=== PATIENT | female | born 1990 | race American Indian/Alaskan Native ===

== ENCOUNTER 2019-06-19 15:05 | Inpatient (IN) | payer OTHER ==
--- NOTE | 2019-06-19 16:01 | Event Note ---
ED Screening Note Date of service: 06/19/19 Time: 16:00 ED Screening Note: This is a 29 y.o. F. that presents with abdominal pain and fever for 2 days. Taking NSAIDs with minimal change. LMP 05/11/19 This initial assessment/diagnostic orders/clinical plan/treatment(s) is/are subject to change based on patients health status, clinical progression and re- assessment by fellow clinical providers in the ED. Further treatment and workup at subsequent clinical providers discretion. Patient/guardian urged not to elope from the ED as their condition may be serious if not clinically assessed and managed. Initial orders include: Labs, CXR, EKG, & CT of abd
[2019-06-19 16:24] LABS: Basophils % (Auto) 0.3 % (0.0-1.8); Hemoglobin 11.6 gm/dl (10.1-14.3); Lymphocytes # (Auto) 1.7 K/mm3 (1.2-5.4); Lymphocytes % (Auto) 10.4 % (13.4-35.0); Mean Corpuscular HGB Conc 34 % (30-34); Mean Corpuscular Volume 89 fl (79-97); Monocytes # (Auto) 1.4 K/mm3 (0.0-0.8); Monocytes % (Auto) 8.5 % (0.0-7.3); Platelet Count 380 K/mm3 (140-440); Red Blood Count 3.82 M/mm3 (3.65-5.03); Red Cell Distribution Width 14.9 % (13.2-15.2)
[2019-06-19 16:33] LABS: INR 1.27 (0.87-1.13)
[2019-06-19 16:46] LABS: Alanine Aminotransferase 9 units/L (7-56); Albumin 3.9 g/dL (3.9-5); BUN/Creatinine Ratio 11; Blood Urea Nitrogen 10 mg/dL (7-17); Calcium 9.1 mg/dL (8.4-10.2); Hemolysis Index 4
--- NOTE | 2019-06-19 17:15 | XRay Report ---
CHEST 1 VIEW INDICATION: possible Sepsis/ HCG ORDERED 1604 AYT COMPARISON: None FINDINGS: Support devices: None Heart: Normal Lungs/Pleura: No acute pulmonary or pleural findings. IMPRESSION: 1. No acute abnormalities. Signer Name: Tacos Chan MD Signed: 06/19/2019 5:10 PM Workstation Name: [id number]
[2019-06-19 18:34] LABS: Bilirubin,Urine NEG (Negative); Blood,Urine SM (Negative); Color,Urine Yellow (Yellow); Mucus,Urine FEW /HPF; Protein,Urine <15 mg/dL mg/dL (Negative); Urobilinogen,Urine < 2.0 mg/dL (<2.0)
[2019-06-19] MEDS ORDERED: SODIUM CHLORIDE 0.9% 1000 ML 1,000 ML IV ONE (20:30)
--- NOTE | 2019-06-19 20:32 | Emergency Department Report ---
ED Abdominal Pain HPI - General Chief Complaint: Fever Stated Complaint: FEVER/ABD PAIN Time Seen by Provider: 06/19/19 15:59 Source: patient Mode of arrival: Ambulatory Limitations: No Limitations - History of Present Illness Initial Comments: Patient is a 29-year-old female that presents emergency with complaints of lower abdominal pain and fever. Patient states her syncopal been going on for 2 days. Patient states that her abdominal pain is worsening. Patient states 10 out of 10. Patient states the pain is worse with movement and better with rest. Patient also complains of nausea without vomiting. Patient states her fever is better with ibuprofen. Patient denies vaginal discharge. Patient denies dysuria. Patient denies cough. Patient denies sore throat MD Complaint: abdominal pain -: Sudden Location: LLQ, RLQ, suprapubic Radiation: none Migration to: no migration Severity: severe Severity scale (0 -10): 10 Quality: stabbing Consistency: constant Improves With: rest Worsens With: movement Associated Symptoms: nausea, fever, chills. denies: vomiting, diarrhea, constipation, dysuria, hematemesis, hematochezia, melena, hematuria, syncope - Related Data LMP (females 10-50): last week Home Medications Medication Instructions Recorded Confirmed Last Taken No Known Home Medications [No 06/20/19 06/20/19 Unknown Reported Home Medications] Allergies Allergy/AdvReac Type Severity Reaction Status Date / Time metronidazole [From Flagyl] Allergy Hives Verified 06/19/19 15:56 tree nut Allergy Angioedema Verified 06/19/19 15:56 ED Review of Systems ROS: Stated complaint: FEVER/ABD PAIN Other details as noted in HPI Constitutional: chills, fever Eyes: denies: eye pain, eye discharge, vision change ENT: denies: ear pain, throat pain Respiratory: denies: cough, shortness of breath, wheezing Cardiovascular: denies: chest pain, palpitations Endocrine: no symptoms reported Gastrointestinal: abdominal pain, nausea. denies: vomiting, diarrhea Genitourinary: denies: urgency, dysuria, discharge Musculoskeletal: denies: back pain, joint swelling, arthralgia Skin: denies: rash, lesions Neurological: denies: headache, weakness, paresthesias Psychiatric: denies: anxiety, depression Hematological/Lymphatic: denies: easy bleeding, easy bruising ED Past Medical Hx - Past Medical History Previous Medical History?: Yes Hx Psychiatric Treatment: Yes Additional medical history: VERTIGO - Surgical History Past Surgical History?: No - Family History Family history: no significant - Social History Smoking Status: Current Some Day Smoker Substance Use Type: None - Medications Home Medications: Home Medications Medication Instructions Recorded Confirmed Last Taken Type No Known Home Medications [No 06/20/19 06/20/19 Unknown History Reported Home Medications] ED Physical Exam - General Limitations: No Limitations General appearance: alert, in no apparent distress - Head Head exam: Present: atraumatic, normocephalic - Eye Eye exam: Present: normal appearance - ENT ENT exam: Present: mucous membranes moist - Neck Neck exam: Present: normal inspection - Respiratory Respiratory exam: Present: normal lung sounds bilaterally. Absent: respiratory distress - Cardiovascular Cardiovascular Exam: Present: regular rate, normal rhythm. Absent: systolic murmur, diastolic murmur, rubs, gallop - GI/Abdominal GI/Abdominal exam: Present: soft, tenderness (bilateral lower quadrant tenderness to palpation.), normal bowel sounds - Rectal Rectal exam: Present: deferred - External exam: Present: normal external exam Speculum exam: Present: vaginal discharge, cervical discharge Bi-manual exam: Present: cervical motion tendernes - Extremities Exam Extremities exam: Present: normal inspection - Back Exam Back exam: Present: normal inspection - Neurological Exam Neurological exam: Present: alert, oriented X3 - Psychiatric Psychiatric exam: Present: normal affect, normal mood - Skin Skin exam: Present: warm, dry, intact, normal color. Absent: rash ED Course Vital Signs 06/19/19 06/19/19 06/19/19 15:58 16:00 20:33 Temperature 101 F H 101.2 F H 99.5 F Pulse Rate 140 H 140 H 130 H Respiratory 16 18 28 H Rate Blood Pressure 126/76 Blood Pressure 126/79 118/75 [Left] O2 Sat by Pulse 97 98 98 Oximetry 06/19/19 06/19/19 06/20/19 21:18 21:35 01:05 Temperature Pulse Rate 123 H 126 H Respiratory 16 28 H 19 Rate Blood Pressure 114/67 114/70 Blood Pressure [Left] O2 Sat by Pulse 98 94 Oximetry 06/20/19 06/20/19 06/20/19 01:06 01:30 01:31 Temperature 100.8 F H Pulse Rate 118 H Respiratory 16 16 20 Rate Blood Pressure Blood Pressure 114/71 [Left] O2 Sat by Pulse 97 Oximetry 06/20/19 06/20/19 01:48 01:50 Temperature Pulse Rate Respiratory 16 16 Rate Blood Pressure Blood Pressure [Left] O2 Sat by Pulse Oximetry - Reevaluation(s) Reevaluation #1: I discussed all results with patient. Discussed plan of care patient. Patient agrees to have pelvic exam done. Patient will be admitted to the [facility] service. Patient agrees with plan of care. 06/20/19 00:36 Reevaluation #2: kavya in room during entire pelvic exam. Pelvic exam done. 06/20/19 00:46 - Consultations Consultation #1: I discussed case with Dr. Machado, ETL SOFTWARE ENGINEER. Dr. Machado agrees to admit the patient for PID. 06/20/19 00:15 ED Medical Decision Making - Lab Data Result diagrams: 06/19/19 16:08 06/19/19 16:08 Short CBC 06/19/19 Range/Units 16:08 WBC 16.6 H (4.5-11.0) K/mm3 Hgb 11.6 (10.1-14.3) gm/dl Hct 34.0 (30.3-42.9) % Plt Count 380 (140-440) K/mm3 BMP 06/19/19 16:08 Sodium 131 L Potassium 3.5 L Chloride 97.3 L Carbon Dioxide 18 L BUN 10 Creatinine 0.9 Glucose 150 H Calcium 9.1 Liver Function 06/19/19 Range/Units 16:08 Total Bilirubin 0.60 (0.1-1.2) mg/dL AST 15 (5-40) units/L ALT 9 (7-56) units/L Alkaline Phosphatase 49 (35-129) units/L Albumin 3.9 (3.9-5) g/dL Urine 06/19/19 Range/Units 18:00 Urine Color Yellow (Yellow) Urine pH 6.0 (5.0-7.0) Ur Specific [place] 1.008 (1.003-1.030) Urine Protein <15 mg/dl (Negative) mg/dL Urine Glucose (UA) Neg (Negative) mg/dL - Radiology Data Radiology results: report reviewed Ultrasound, pelvic (nonobstetric), real-time with image documentation;transvaginal imaging with Doppler was performed. FINDINGS: The uterus is of normal size and echogenicity. 3.0 cm uterine fibroids present on the right.. Endometrial thickness is 1.07 cm The right ovary demonstrates a hypoechoic mass-hemorrhagic cyst measuring 10 cm. A 3.0 cm cyst is present on the left with internal septations. Doppler imaging demonstrates normal vascular flow to both ovaries. There is no significant quantity of free fluid dependently within the pelvis. IMPRESSION: 1. Large right hypoechoic right ovarian lesion without significant septations, large hemorrhagic cyst is a concern 2. Small 3 cm left ovarian cyst with septations, recommend continued follow-up cyst adenoma versus cyst adenocarcinoma should be considered Comments MR is recommended for further evaluation CT abdomen pelvis w con INDICATION / CLINICAL INFORMATION: lower abdominal pain. TECHNIQUE: All CT scans at this location are performed using CT dose reduction for ALARA by means of automated exposure control. COMPARISON: None available. FINDINGS: The lower lungs are clear. ABDOMEN: The gallbladder, liver, spleen, pancreas and adrenal glands are normal. No renal lesions. No evidence of the hydronephrosis. No retroperitoneal or mesenteric adenopathy. Pelvis: Multi cystic mass in the pelvis causing anterior and left lateral displacement of the uterus. The mass, overall measures approximately 13 cm x 10 cm. Small amount of pelvic ascites is identified. The appendix is normal. No pelvic adenopathy. No osseous abnormality. IMPRESSION: 1. Large multicystic pelvic mass presumably arising from ovary but nonspecific in appearance. CHEST 1 VIEW INDICATION: possible Sepsis/ HCG ORDERED 1604 AYT COMPARISON: None FINDINGS: Support devices: None Heart: Normal Lungs/Pleura: No acute pulmonary or pleural findings. IMPRESSION: 1. No acute abnormalities - Medical Decision Making Patient is a 29-year-old female that presents emergency room with complaints of lower abdominal pain and fever. Patient's clinical findings are consistent with PID. Patient given antibiotics. Patient admitted to mother baby to the [facility] OPER[facility] service. Patient had CT scan which shows a pelvic mass. Patient then had a follow-up ultrasound, transvaginal and the results showed hydrosalpinx and ovarian cyst. FINDINGS ARE CONSISTENT WITH PID. PATIENT THEN HAD A PELVIC EXAM WITH A NURSE ACCURACY EXPERT AND THROAT EXAM REVEALED CERVICAL motion tenderness and copious amounts of vaginal discharge. Gonorrhea and chlamydia and wet prep were sent to the lab for analysis. Patient given fluid bolus and Dilaudid for pain. Patient given Rocephin and Doxey for antibiotics for PID. - Differential Diagnosis PID, abdominal pain, fever, ovarian torsion, appendicitis Critical Care Time: Yes Critical care time in (mins) excluding proc time.: 45 Critical care attestation.: If time is entered above; I have spent that time in minutes in the direct care of this critically ill patient, excluding procedure time. Critical Care Time: 45 minutes ED Disposition Clinical Impression: PID (acute pelvic inflammatory disease), Pelvic mass, Nausea alone Fever Qualifiers: Fever type: unspecified Qualified Code(s): R50.9 - Fever, unspecified Abdominal pain Qualifiers: Abdominal location: lower abdomen, unspecified Qualified Code(s): R10.30 - Lower abdominal pain, unspecified Ovarian cyst Qualifiers: Laterality: unspecified laterality Qualified Code(s): N83.209 - Unspecified ovarian cyst, unspecified side Disposition: OP ADMIT IP TO THIS HOSP Is pt being admited?: Yes Does the pt Need Aspirin: No Condition: Critical Time of Disposition: 00:50
[2019-06-19] MEDS: SODIUM CHLORIDE 0.9% 500 ML 500 ML IV ONE ×2 (20:42→22:42)
[2019-06-19] MEDS ORDERED: HYDROmorphone 1 MG/1 ML INJ IV ONE (20:45)
[2019-06-19] MEDS ORDERED: HYDROmorphone 1 MG/1 ML INJ ONE (20:48)
--- NOTE | 2019-06-19 21:56 | Cat Scan Report ---
CT abdomen pelvis w con INDICATION / CLINICAL INFORMATION: lower abdominal pain. TECHNIQUE: All CT scans at this location are performed using CT dose reduction for ALARA by means of automated e xposure control. COMPARISON: None available. FINDINGS: The lower lungs are clear. ABDOMEN: The gallbladder, liver, spleen, pancreas and adrenal glands are normal. No renal lesions. No evidence of the hydronephrosis. No retroperitoneal or mesenteric adenopathy. Pelvis: Multi cystic mass in the pelvis causing anterior and left lateral displacement of the uterus. The mas s, overall measures approximately 13 cm x 10 cm. Small amount of pelvic ascites is identified. The appendix is normal. No pelvic adenopathy. No osseous abnormality. IMPRESSION: 1. Large multicystic pelvic mass presumably arising from ovary but nonspecific in appearance. Signer Name: Sai Salgado MD Signed: 06/19/2019 9:51 PM Workstation Name: [id number]
--- NOTE | 2019-06-19 23:25 | Ultrasound Report ---
CLINICAL DATA: abd pain TECHNICAL DATA: Ultrasound, pelvic (nonobstetric), real-time with image documentation;transvaginal imaging with Doppl er was performed. FINDINGS: The uterus is of normal size and echogenicity. 3.0 cm uterine fibroids present on the right.. Endome trial thickness is 1.07 cm The right ovary demonstrates a hypoechoic mass-hemorrhagic cyst measuring 10 cm. A 3.0 cm cyst is pre sent on the left with internal septations. Doppler imaging demonstrates normal vascular flow to both ovaries. There is no significant quantity of free fluid dependently within the pelvis. IMPRESSION: 1. Large right hypoechoic right ovarian lesion without significant septations, large hemorrhagic cyst is a concern 2. Small 3 cm left ovarian cyst with septations, recommend continued follow-up cyst adenoma versus cy st adenocarcinoma should be considered Comments MR is recommended for further evaluation GUIDELINES FOR IMAGING OF OVARIAN--ADNEXAL CYST: WOMEN OF REPRODUCTIVE AGE: 1. Cysts <=3 cm: Normal physiologic findings; at the discretion of the interpreting physician whether or not to describe them in the imaging report; do not need follow-up. 2. Cysts >3 and <=5 cm: Should be described in the imaging report with a statement that they are almo st certainly benign; do not need follow-up. 3. Cysts >5 and <=7 cm: Should be described in the imaging report with a statement that they are almo st certainly benign; yearly follow-up with US recommended. 4. Cysts >7 cm: Since these may be difficult to assess completely with US, further imaging with magne tic resonance (MR) or surgical evaluation should be considered. POSTMENOPAUSAL WOMEN: 1. Cysts <=1 cm: Are clinically inconsequential; at the discretion of the interpreting physician whet her or not to describe them in the imaging report; do not need follow-up. 2. Cysts >1 and <=7 cm: Should be described in the imaging report with statement that they are almost certainly benign; yearly follow-up, at least initially, with US recommended. Some practices may opt to increase the lower size threshold for follow-up from 1 cm to as high as 3 cm. One may opt to yovani nue follow-up annually or to decrease the frequency of follow-up once stability or decrease in size h as been confirmed. Cysts in the larger end of this range should still generally be followed on a regu lar basis. 3. Cysts >7 cm: Since these may be difficult to assess completely with US, further imaging with MR or surgical evaluation should be considered. Signer Name: Emmanuel Diaz MD Signed: 06/19/2019 11:20 PM Workstation Name: [id number]
[2019-06-20] MEDS ORDERED: cefTRIAXone/NS 2 GM/100 ML 2 GM/100 ML BAG IV ONE (00:38)
[2019-06-20] MEDS ORDERED: SODIUM CHLORIDE 0.9% 1000 ML 1,000 ML IV ONE (00:38)
[2019-06-20] MEDS ORDERED: HYDROmorphone 1 MG/1 ML INJ ONE (00:41)
[2019-06-20] MEDS ORDERED: SODIUM CHLORIDE 0.9% 1000 ML 1,000 ML ONE (00:41)
[2019-06-20] MEDS ORDERED: DOXYCYCLINE HYCLATE 100 MG in SODIUM CHLORIDE 0.9% 250ML 250 ML IV ONE (00:53)
[2019-06-20] MEDS: HYDROmorphone 1 MG/1 ML INJ IV ONE ×2 (01:06→01:30)
[2019-06-20] MEDS ORDERED: IBUPROFEN 800 MG TAB PO ONE (01:30)
[2019-06-20] MEDS ORDERED: IBUPROFEN 800 MG TAB ONE (01:41)
[2019-06-20] MEDS: HYDROmorphone 2 MG/1 ML INJ IM PRN ×2 (08:00→14:42)
[2019-06-20] MEDS ORDERED: ONDANSETRON 4 MG/2 ML INJ IV ONE (12:57)
[2019-06-20] MEDS: LACTATED RINGERS 1,000 ML IV SCH (13:07)
--- NOTE | 2019-06-20 14:34 | History and Physical Report ---
History of Present Illness Date of examination: 06/20/19 Date of admission: 06/20/19 00:47 Chief complaint: I'm in pain History of present illness: Patient is a 29 year old G2 who presented to the Ed with complaint of pelvic pain since Saturday that go worse Saturday afternoon. Patient also reports a discharge with an odor. She denies any new sexual partners. She states that her last manager gyn exam was in August 2018. Past History Past Medical History: no pertinent history Past Surgical History: no surgical history Social history: other (patient denies any new partners) Medications and Allergies Allergies Allergy/AdvReac Type Severity Reaction Status Date / Time metronidazole [From Flagyl] Allergy Hives Verified 06/19/19 15:56 tree nut Allergy Angioedema Verified 06/19/19 15:56 Home Medications Medication Instructions Recorded Confirmed Last Taken Type No Known Home Medications [No 06/20/19 06/20/19 Unknown History Reported Home Medications] Active Meds: Active Medications Acetaminophen (Tylenol) 650 mg PO Q6H PRN PRN Reason: Pain, Mild (1-3) Hydromorphone HCl (Dilaudid) 2 mg IM Q3H PRN PRN Reason: Pain , Severe (7-10) Last Admin: 06/20/19 08:00 Dose: 2 mg Documented by: Lactated Ringer's (Lactated Ringers) 1,000 mls @ 125 mls/hr IV DIRECT ALEX Last Admin: 06/20/19 13:07 Dose: 125 mls/hr Documented by: Levofloxacin/Dextrose (Levaquin 500mg/100ml) 500 mg in 100 mls @ 100 mls/hr IV Q24HR ALEX; Protocol Zolpidem Tartrate (Ambien) 5 mg PO QHS PRN PRN Reason: Sleep Review of Systems Constitutional: fever, chills, weakness, malaise Genitourinary: vaginal discharge, leakage of fluid, pelvic pain - Vital Signs Vital signs: Vital Signs Temp Pulse Resp BP Pulse Ox 101 F H 140 H 16 126/79 97 06/19/19 15:58 06/19/19 15:58 06/19/19 15:58 06/19/19 15:58 06/19/19 15:58 Temp Pulse Resp BP Pulse Ox 98.2 F 94 H 20 113/64 97 06/20/19 09:40 06/20/19 09:40 06/20/19 09:40 06/20/19 09:40 06/20/19 03:32 - Physical Exam Breasts: Positive: deferred Cardiovascular: Regular rate, Normal S1, Normal S2 Lungs: Positive: Clear to auscultation, Normal air movement Abdomen: Positive: normal appearance, soft, normal bowel sounds Genitourinary (Female): Positive: normal external genitalia, normal perenium Vulva: both: normal Vagina: Positive: normal moisture Results Result Diagrams: 06/19/19 16:08 06/19/19 16:08 Abnormal lab results 06/19/19 06/19/19 06/19/19 Range/Units 16:08 16:08 16:08 WBC 16.6 H (4.5-11.0) K/mm3 Lymph % (Auto) 10.4 L (13.4-35.0) % [place] % (Auto) 8.5 H (0.0-7.3) % [place] # 1.4 H (0.0-0.8) K/mm3 Seg Neutrophils % 80.8 H (40.0-70.0) % Seg Neutrophils # 13.4 H (1.8-7.7) K/mm3 PT 16.1 H (12.2-14.9) Sec. INR 1.27 H (0.87-1.13) VBG pH (7.320-7.420) Sodium 131 L (137-145) mmol/L Potassium 3.5 L (3.6-5.0) mmol/L Chloride 97.3 L (98-107) mmol/L Carbon Dioxide 18 L (22-30) mmol/L Glucose 150 H (65-100) mg/dL Total Protein 8.3 H (6.3-8.2) g/dL 06/19/19 Range/Units 16:08 WBC (4.5-11.0) K/mm3 Lymph % (Auto) (13.4-35.0) % [place] % (Auto) (0.0-7.3) % [place] # (0.0-0.8) K/mm3 Seg Neutrophils % (40.0-70.0) % Seg Neutrophils # (1.8-7.7) K/mm3 PT (12.2-14.9) Sec. INR (0.87-1.13) VBG pH 7.482 H (7.320-7.420) Sodium (137-145) mmol/L Potassium (3.6-5.0) mmol/L Chloride (98-107) mmol/L Carbon Dioxide (22-30) mmol/L Glucose (65-100) mg/dL Total Protein (6.3-8.2) g/dL All other labs normal. Assessment and Plan 29 year old female with presumed PID and likely TOA. Will begin IV antibiotics to decrease symptoms. Once nausea and vomiting ceased, would change to oral antibiotics.
[2019-06-20] MEDS: ACETAMINOPHEN 325 MG TAB PO PRN (17:00)
[2019-06-20] MEDS: HYDROmorphone 2 MG TAB PO PRN (23:41)
[2019-06-21] MEDS: ACETAMINOPHEN 325 MG TAB PO PRN ×3 (00:34→23:10)
[2019-06-21] MEDS: ZOLPIDEM 5 MG TAB PO PRN (02:14)
[2019-06-21] MEDS: HYDROmorphone 2 MG TAB PO PRN ×3 (08:54→20:27)
[2019-06-21] MEDS: ONDANSETRON 8 MG ODT TAB PO PRN ×2 (08:56→16:52)
[2019-06-21] MEDS: LACTATED RINGERS 1,000 ML IV SCH (15:00)
[2019-06-22] MEDS: LACTATED RINGERS 1,000 ML IV SCH ×3 (00:44→17:16)
[2019-06-22] MEDS: HYDROmorphone 2 MG TAB PO PRN ×5 (00:49→23:53)
[2019-06-22] MEDS: ACETAMINOPHEN 325 MG TAB PO PRN (08:20)
--- NOTE | 2019-06-22 14:08 | XRay Report ---
CHEST 2 VIEWS INDICATION: elevated temperature. COMPARISON: 06/19/2019 FINDINGS: Support devices: None. Heart: Within normal limits. Pulmonary vasculature: Normal. Lungs/pleura: No acute air space or interstitial disease. No pneumothorax. Additional findings: None. IMPRESSION: 1. No acute findings. Signer Name: Braydon Kruger MD Signed: 06/22/2019 2:04 PM Workstation Name: [id number]
[2019-06-22] MEDS: GENTAMICIN/NS 80 MG/100 ML 100 ML IV SCH ×2 (15:18→23:57)
[2019-06-23] MEDS: ACETAMINOPHEN 325 MG TAB PO PRN ×3 (00:35→22:10)
[2019-06-23] MEDS: HYDROmorphone 2 MG TAB PO PRN ×2 (04:36→08:16)
[2019-06-23] MEDS: GENTAMICIN/NS 80 MG/100 ML 100 ML IV SCH (08:15)
--- NOTE | 2019-06-23 09:14 | Progress Note ---
Assessment and Plan HD 2 for this patient with likely TOA. Pt states pain is severe, but exam is inconsistent with complaint. Pt had some fever overnight so discharge can not be completed. Additionally, pt iV infiltrated last night and patient had some issues with nursing staff regarding replacement of IV. Pt is currently on PO meds. I explained to patient that if she refused IV, then she could continue to take PO meds at home. Pt states that she did not refuse IV and is willing to have it replaced. Will replace IV and continue to monitor for resolution of symptoms. Subjective Date of service: 06/21/19 Principal diagnosis: PID Interval history: Patient is a 29 year old female who presented to the ED with complaint of pelvic pain that started 2 days prior to admission. Pt denies any new sexual partners. Ultrasound reveals what may be large TOA. Objective - Constitutional Vitals: Vital Signs - 12hr 06/22/19 06/22/19 06/23/19 22:00 23:53 00:21 Temperature 100.8 F H Pulse Rate 102 H Respiratory 18 18 Rate Respiratory 18 Rate [Abdomen] Blood Pressure 130/76 O2 Sat by Pulse 98 Oximetry 06/23/19 06/23/19 06/23/19 00:35 00:53 01:35 Temperature Pulse Rate Respiratory 18 18 18 Rate Respiratory Rate [Abdomen] Blood Pressure O2 Sat by Pulse Oximetry 06/23/19 06/23/19 06/23/19 04:29 04:36 05:36 Temperature 99.6 F Pulse Rate 97 H Respiratory 18 18 18 Rate Respiratory Rate [Abdomen] Blood Pressure 110/60 O2 Sat by Pulse 97 Oximetry 06/23/19 07:28 Temperature 99.7 F H Pulse Rate 102 H Respiratory 20 Rate Respiratory Rate [Abdomen] Blood Pressure 126/77 O2 Sat by Pulse 98 Oximetry General appearance: Present: no acute distress - EENT Eyes: PERRL, EOM intact ENT: hearing intact, clear oral mucosa Ears: bilateral: normal - Respiratory Respiratory effort: normal - Cardiovascular Heart rate: 120 (tachycardic since admission) Heart Sounds: Present: S1 & S2 Extremities: no ischemia - Labs CBC & Chem 7: 06/19/19 16:08 06/19/19 16:08 Medications & Allergies - Medications Allergies/Adverse Reactions: Allergies metronidazole [From Flagyl] Allergy (Verified 06/19/19 15:56) Hives tree nut Allergy (Verified 06/19/19 15:56) Angioedema Home Medications: Home Medications Medication Instructions Recorded Confirmed Last Taken Type levoFLOXacin [Levaquin TAB] 500 mg PO QDAY 10 Days #10 tablet 06/21/19 Unknown Rx oxyCODONE /ACETAMINOPHEN [Percocet 2 tab PO Q6HR PRN #40 tablet 06/21/19 Unknown Rx 5/325] Active Medications: Generic Name Dose Route Start Last Admin Trade Name Freq PRN Reason Stop Dose Admin Acetaminophen 650 mg 06/20/19 02:42 06/23/19 00:35 Tylenol PO 650 mg Q6H PRN Administration Pain, Mild (1-3) Hydromorphone HCl 2 mg 06/20/19 02:40 06/20/19 14:42 Dilaudid IM 2 mg Q3H PRN Administration Pain , Severe (7-10) Hydromorphone HCl 2 mg 06/20/19 23:05 06/23/19 08:16 Dilaudid PO 2 mg Q4H PRN Administration Pain , Severe (7-10) Lactated Ringer's 1,000 mls @ 125 mls/hr 06/20/19 03:00 06/22/19 17:16 Lactated Ringers IV 125 mls/hr DIRECT ALEX Administration Levofloxacin/Dextrose 500 mg in 100 mls @ 100 mls/hr 06/20/19 16:00 06/22/19 17:10 Levaquin 500mg/100ml IV 100 mls/hr Q24HR ALEX Administration Protocol Gentamicin Sulfate/Sodium Chloride 100 mls @ 200 mls/hr 06/22/19 12:00 06/23/19 08:15 Gentamicin/Ns 80 Mg/100 Ml IV 200 mls/hr Q8H ALEX Administration Ondansetron HCl 8 mg 06/20/19 23:08 06/21/19 16:52 Zofran Odt PO 8 mg Q8H PRN Administration Nausea And Vomiting Zolpidem Tartrate 5 mg 06/20/19 02:41 06/21/19 02:14 Ambien PO 5 mg QHS PRN Administration Sleep
--- NOTE | 2019-06-23 09:30 | Progress Note ---
Assessment and Plan Pt continues to spike temps. Will consider drainage of cyst via IR as opposed to surgical exploration. Subjective Date of service: 06/23/19 Principal diagnosis: PID Interval history: Pt continues to spike fever overnight and still complains of pain. Objective - Constitutional Vitals: Vital Signs - 12hr 06/22/19 06/22/19 06/23/19 22:00 23:53 00:21 Temperature 100.8 F H Pulse Rate 102 H Respiratory 18 18 Rate Respiratory 18 Rate [Abdomen] Blood Pressure 130/76 O2 Sat by Pulse 98 Oximetry 06/23/19 06/23/19 06/23/19 00:35 00:53 01:35 Temperature Pulse Rate Respiratory 18 18 18 Rate Respiratory Rate [Abdomen] Blood Pressure O2 Sat by Pulse Oximetry 06/23/19 06/23/19 06/23/19 04:29 04:36 05:36 Temperature 99.6 F Pulse Rate 97 H Respiratory 18 18 18 Rate Respiratory Rate [Abdomen] Blood Pressure 110/60 O2 Sat by Pulse 97 Oximetry 06/23/19 07:28 Temperature 99.7 F H Pulse Rate 102 H Respiratory 20 Rate Respiratory Rate [Abdomen] Blood Pressure 126/77 O2 Sat by Pulse 98 Oximetry - Labs CBC & Chem 7: 06/19/19 16:08 06/19/19 16:08 Medications & Allergies - Medications Allergies/Adverse Reactions: Allergies metronidazole [From Flagyl] Allergy (Verified 06/19/19 15:56) Hives tree nut Allergy (Verified 06/19/19 15:56) Angioedema Home Medications: Home Medications Medication Instructions Recorded Confirmed Last Taken Type levoFLOXacin [Levaquin TAB] 500 mg PO QDAY 10 Days #10 tablet 06/21/19 Unknown Rx oxyCODONE /ACETAMINOPHEN [Percocet 2 tab PO Q6HR PRN #40 tablet 06/21/19 Unknown Rx 5/325] Active Medications: Generic Name Dose Route Start Last Admin Trade Name Freq PRN Reason Stop Dose Admin Acetaminophen 650 mg 06/20/19 02:42 06/23/19 00:35 Tylenol PO 650 mg Q6H PRN Administration Pain, Mild (1-3) Hydromorphone HCl 2 mg 06/20/19 02:40 06/20/19 14:42 Dilaudid IM 2 mg Q3H PRN Administration Pain , Severe (7-10) Hydromorphone HCl 2 mg 06/20/19 23:05 06/23/19 08:16 Dilaudid PO 2 mg Q4H PRN Administration Pain , Severe (7-10) Lactated Ringer's 1,000 mls @ 125 mls/hr 06/20/19 03:00 06/22/19 17:16 Lactated Ringers IV 125 mls/hr DIRECT ALEX Administration Levofloxacin/Dextrose 500 mg in 100 mls @ 100 mls/hr 06/20/19 16:00 06/22/19 17:10 Levaquin 500mg/100ml IV 100 mls/hr Q24HR ALEX Administration Protocol Gentamicin Sulfate/Sodium Chloride 100 mls @ 200 mls/hr 06/22/19 12:00 06/23/19 08:15 Gentamicin/Ns 80 Mg/100 Ml IV 200 mls/hr Q8H ALEX Administration Ondansetron HCl 8 mg 06/20/19 23:08 06/21/19 16:52 Zofran Odt PO 8 mg Q8H PRN Administration Nausea And Vomiting Zolpidem Tartrate 5 mg 06/20/19 02:41 06/21/19 02:14 Ambien PO 5 mg QHS PRN Administration Sleep
[2019-06-23 12:19] LABS: Hematocrit 27.3 % (30.3-42.9); Mean Corpuscular HGB Conc 33 % (30-34); Mean Corpuscular Volume 89 fl (79-97); Platelet Count 379 K/mm3 (140-440); Red Blood Count 3.08 M/mm3 (3.65-5.03); Red Cell Distribution Width 15.1 % (13.2-15.2)
[2019-06-23] MEDS ORDERED: fentaNYL 100 MCG/2 ML INJ IV ONE (12:28)
[2019-06-23] MEDS ORDERED: MIDAZOLAM 5 MG/5 ML INJ MDV IV ONE ×2 (12:28→13:12)
[2019-06-23] MEDS: oxyCODONE /ACETAMINOPHEN 5-325MG TAB PO PRN (12:48)
[2019-06-23] MEDS ORDERED: fentaNYL 100 MCG/2 ML INJ ONE (13:13)
[2019-06-23] MEDS ORDERED: LIDOCAINE 1%/EPINEPHRINE 1:100,000 VIAL (20 ML) INFILTRATI ONE (13:56)
[2019-06-23 14:08] LABS: Total Cells Counted 100
[2019-06-23 14:10] LABS: Band Neutrophils # (Manual) 0.3 K/mm3; Basophils % (Manual) 0 % (0.0-1.8); Eosinophils % (Manual) 0 % (0.0-4.3)
[2019-06-23 14:11] LABS: Hypochromasia 1+; Large Platelets Rare; Platelet Estimate Consistent w Auto; Target Cells Few
--- NOTE | 2019-06-23 14:50 | Post Operative Note ---
Date of procedure: 06/23/19 Pre-op diagnosis: Pelvic TOA Post-op diagnosis: same Findings: 550 mL of mildly cloudy light brown fluid Procedure: CT guided placement of a 8 Fr transgluteal drain in the pelvic TOA Anesthesia: local (w/ conscious sedation) Surgeon: BRENNA KATE Estimated blood loss: minimal Condition: stable Disposition: floor
[2019-06-23] MEDS: LACTATED RINGERS 1,000 ML IV SCH (19:53)
[2019-06-23] MEDS: ZOLPIDEM 5 MG TAB PO PRN (22:10)
[2019-06-24] MEDS: oxyCODONE /ACETAMINOPHEN 5-325MG TAB PO PRN ×4 (00:24→22:35)
[2019-06-24] MEDS: GENTAMICIN/NS 80 MG/100 ML 100 ML IV SCH ×2 (00:46→08:26)
[2019-06-24] MEDS ORDERED: KETOROLAC 30 MG/1 ML INJ IV PRN (08:35)
--- NOTE | 2019-06-24 08:35 | Progress Note ---
Assessment and Plan A: HD#5, PID with presumed TOA s/p percutaneous drainage of 06/23/19 with subsequent fever P: ID consult today Add Toradol to pain regimen Leti of Jennifer Subjective - Subjective Date of service: 06/24/19 Principal diagnosis: PID, suspected TOA Interval history: Pt underwent drainage procedure yesterday. Febrile just prior to midnight. She reports that her pain is not well controlled today, but is less then on admission. Patient reports: appetite normal, voiding normally, flatus (minimal), pain poorly controlled, no bowel movement (in 2 days) Objective - Vital Signs Latest vital signs: Vital Signs Temp Pulse Pulse Pulse Resp Resp Resp 06/24/19 08:21 98.9 F 98 H 18 06/24/19 06:48 18 06/24/19 05:34 98.6 F 87 16 06/24/19 01:30 100.2 F H 06/24/19 00:24 18 06/23/19 23:54 101.9 F H 122 H 18 06/23/19 22:10 18 06/23/19 21:25 102.6 F H 110 H 18 06/23/19 16:57 98.9 F 106 H 20 06/23/19 14:54 105 H 13 06/23/19 14:40 105 H 17 06/23/19 14:29 107 H 06/23/19 14:24 96 H 13 06/23/19 14:19 101 H 21 06/23/19 14:15 97 H 14 06/23/19 14:12 103 H 15 06/23/19 12:34 102.6 F H 87 24 BP BP BP Pulse Ox Pulse Ox Pulse Ox 06/24/19 08:21 114/71 96 06/24/19 06:48 06/24/19 05:34 111/69 98 06/24/19 01:30 06/24/19 00:24 06/23/19 23:54 126/68 96 06/23/19 22:10 06/23/19 21:25 128/78 100 06/23/19 16:57 109/67 98 06/23/19 14:54 109/47 96 06/23/19 14:40 96/55 99 06/23/19 14:29 109/59 98 06/23/19 14:24 103/57 99 06/23/19 14:19 127/64 100 06/23/19 14:15 115/76 100 06/23/19 14:12 121/70 99 06/23/19 12:34 140/88 99 Intake and Output 06/23/19 06/24/19 06/24/19 22:59 06:59 14:59 Intake Total 460 Output Total 1100 Balance -640 Intake: IV 100 Gentamicin/Ns 80 mg/100 100 ml 100 ml @ 200 mls/hr IV Q8H [facility] Rx#:[id number] Intake, Free Water 360 Output: Urine 1100 Void 1100 Other: Total, Output Amount 1100 Voiding Method Toilet - Exam Breasts: Present: deferred Cardiovascular: Present: Regular rate Lungs: Present: Clear to auscultation Abdomen: Present: soft, distention (mild ), other (Drain ) Extremities: Present: normal - Labs Labs: Abnormal lab results 06/23/19 Range/Units 11:33 WBC 14.2 H (4.5-11.0) K/mm3 RBC 3.08 L (3.65-5.03) M/mm3 Hgb 9.0 L (10.1-14.3) gm/dl Hct 27.3 L (30.3-42.9) % Seg Neuts % (Manual) 79.0 H (40.0-70.0) % Lymphocytes % (Manual) 5.0 L (13.4-35.0) % Monocytes % (Manual) 14.0 H (0.0-7.3) % Seg Neutrophils # Man 11.2 H (1.8-7.7) K/mm3 Lymphocytes # (Manual) 0.7 L (1.2-5.4) K/mm3 Monocytes # (Manual) 2.0 H (0.0-0.8) K/mm3
[2019-06-24] MEDS ORDERED: MAGNESIUM HYDROXIDE (MOM) ORAL LIQD UDC PO PRN (08:36)
[2019-06-24 11:35] LABS: Basophils % (Auto) 0.2 % (0.0-1.8); Eosinophils % (Auto) 0.2 % (0.0-4.3); Hematocrit 29.4 % (30.3-42.9); Hemoglobin 9.9 gm/dl (10.1-14.3); Lymphocytes # (Auto) 1.7 K/mm3 (1.2-5.4); Mean Corpuscular HGB Conc 34 % (30-34); Mean Corpuscular Volume 90 fl (79-97); Monocytes # (Auto) 0.8 K/mm3 (0.0-0.8); Monocytes % (Auto) 8.1 % (0.0-7.3); Platelet Count 402 K/mm3 (140-440); Red Blood Count 3.28 M/mm3 (3.65-5.03); Red Cell Distribution Width 15.3 % (13.2-15.2)
--- NOTE | 2019-06-24 12:14 | Consultation ---
History of Present Illness - Reason for Consult Consult date: 06/24/19 Fever, TOA Requesting physician: INA ORO - History of Present Illness The patient is a 29 year old female who was admitted on 06/20/2019 after she came to the ED with complaints of pelvic pain since Saturday last week associated with foul smelling vaginal drainage. CT showed a multicystic pelvic mass. Due to concern for tuboovarian abscess, patient underwent 550 ml drainage of mildly cloudy light brown fluid by Dr. Sierra on 06/23/2019. ID was consulted for Abx recommendations. Currently on Levofloxacin, Gentamicin. Currently complaining of ongoing abdominal pain, slightly better than admissions. Flagyl allergy, patient states she developed rectal bleeding and had to go to the ER, does not want to take it again. Review of Systems: General: fever, chills. HEENT: no new visual disturbance Respiratory: No cough, sputum, hemoptysis. No new or worsening shortness of breath. Cardiovascular: No chest pain, syncope Gastrointestinal: No nausea, vomiting or diarrhea. Lower abdominal pain. Genitourinary: No dysuria or hematuria Musculoskeletal: No new or worsening neck pain or back pain Neurologic: No headaches, seizures Hematologic: No easy bruising or bleeding Endocrine: No night sweats or acute weight loss Skin: negative for rash, jaundice Psychiatric: No suicidal or homicidal ideation Past History Social history: other (patient denies any new partners) Medications and Allergies Allergies Allergy/AdvReac Type Severity Reaction Status Date / Time metronidazole [From Flagyl] Allergy Hives Verified 06/19/19 15:56 tree nut Allergy Angioedema Verified 06/19/19 15:56 Home Medications Medication Instructions Recorded Confirmed Last Taken Type levoFLOXacin [Levaquin TAB] 500 mg PO QDAY 10 Days #10 tablet 06/21/19 Unknown Rx oxyCODONE /ACETAMINOPHEN [Percocet 2 tab PO Q6HR PRN #40 tablet 06/21/19 Unknown Rx 5/325] Active Meds: Active Medications Acetaminophen (Tylenol) 650 mg PO Q6H PRN PRN Reason: Pain, Mild (1-3) Last Admin: 06/23/19 22:10 Dose: 650 mg Documented by: Lactated Ringer's (Lactated Ringers) 1,000 mls @ 125 mls/hr IV DIRECT ALEX Last Admin: 12/24/19 19:53 Dose: 125 mls/hr Documented by: Levofloxacin/Dextrose (Levaquin 500mg/100ml) 500 mg in 100 mls @ 100 mls/hr IV Q24HR [facility]; Protocol Last Admin: 06/24/19 10:01 Dose: 100 mls/hr Documented by: Gentamicin Sulfate/Sodium Chloride (Gentamicin/Ns 80 Mg/100 Ml) 100 mls @ 200 mls/hr IV Q8H ALEX Last Admin: 06/24/19 08:26 Dose: 200 mls/hr Documented by: Ketorolac Tromethamine (Toradol) 30 mg IV Q6H PRN PRN Reason: Pain, Moderate (4-6) Stop: 06/29/19 08:34 Magnesium Hydroxide (Milk Of Magnesia) 30 ml PO Q4H PRN PRN Reason: Constipation Last Admin: 06/24/19 10:01 Dose: 30 ml Documented by: Ondansetron HCl (Zofran Odt) 8 mg PO Q8H PRN PRN Reason: Nausea And Vomiting Last Admin: 06/21/19 16:52 Dose: 8 mg Documented by: Oxycodone/Acetaminophen (Percocet 5/325) 2 tab PO Q6H PRN PRN Reason: Pain, Moderate (4-6) Last Admin: 06/24/19 06:48 Dose: 2 tab Documented by: Zolpidem Tartrate (Ambien) 5 mg PO QHS PRN PRN Reason: Sleep Last Admin: 06/23/19 22:10 Dose: 5 mg Documented by: Physical Examination - Physical Exam Narrative exam: Constitutional: awake, alert, no distress Head, Ears, Nose: Normocephalic, atraumatic. External ears, nose normal Eyes: Conjunctivae/corneas clear. No icterus. No ptosis. Neck: supple, no meningeal signs Oral: no thrush Cardiovascular: S1, S2 normal. Respiratory: Good air entry, clear to auscultation bilaterally but reduced in the bases GI: Soft, tenderness in lower abdomen; bowel sounds normal. No peritoneal signs. Posteriorly with drain + Musculoskeletal: No pedal edema, no cyanosis. Skin: No rash or abscess Hem/Lymphatic: No palpable cervical or supraclavicular nodes. No lymphangitis Psych: mood OK. Affect normal. Neurological: awake, alert, oriented. No focal deficits. - Constitutional Vitals: Vital Signs Temp Pulse Resp BP Pulse Ox 98.9 F 98 H 18 114/71 96 06/24/19 08:21 06/24/19 08:21 06/24/19 08:21 06/24/19 08:21 06/24/19 08:21 Temperature -Last 24 Hours Temperature 98.9 F Temperature 98.6 F Temperature 100.2 F Temperature 101.9 F Temperature 102.6 F Temperature 98.9 F Temperature 102.6 F Results - Labs CBC & Chem 7: 06/24/19 10:29 06/19/19 16:08 Labs: Abnormal lab results 06/23/19 06/24/19 Range/Units 11:33 10:29 WBC 14.2 H (4.5-11.0) K/mm3 RBC 3.08 L 3.28 L (3.65-5.03) M/mm3 Hgb 9.0 L 9.9 L (10.1-14.3) gm/dl Hct 27.3 L 29.4 L (30.3-42.9) % RDW 15.3 H (13.2-15.2) % [place] % (Auto) 8.1 H (0.0-7.3) % Seg Neutrophils % 74.5 H (40.0-70.0) % Seg Neuts % (Manual) 79.0 H (40.0-70.0) % Lymphocytes % (Manual) 5.0 L (13.4-35.0) % Monocytes % (Manual) 14.0 H (0.0-7.3) % Seg Neutrophils # Man 11.2 H (1.8-7.7) K/mm3 Lymphocytes # (Manual) 0.7 L (1.2-5.4) K/mm3 Monocytes # (Manual) 2.0 H (0.0-0.8) K/mm3 - Imaging and Cardiology CT scan - pelvis: report reviewed, image reviewed (Large multicystic pelvic mass ) Assessment and Plan Cultures: 06/19/2019 Blood culture: No growth 06/19/2019 Urine culture: skin joe 06/20/2019 GC NAAT: negative 06/23/2019 HIV: non reactive 06/23/2019 IR drainage culture: no growth A/P: 29/F with: 1) Sepsis secondary to TOA: s/p drainage by IR on 06/23/2019 2) Flagyl allergy, patient states she developed rectal bleeding and had to go to the ER, does not want to take it again. Recs: d/sherman levofloxacin and gentamicin started IV Ceftriaxone, Clindamycin and Doxycycline follow up drainage cultures Dr. Mike rodgers tomorrow David Iglesias MD, FACP [facility] ([facility]) C: [phone] O: [phone] F: [phone]
[2019-06-24] MEDS ORDERED: cefTRIAXone/NS 2 GM/100 ML 2 GM/100 ML BAG IV SCH (13:00)
[2019-06-24] MEDS: DOXYCYCLINE 100 MG CAPSULE PO SCH (17:39)
[2019-06-24] MEDS: CLINDAMYCIN 600 MG/50 mL 600 MG/50 ML BAG IV SCH (17:40)
[2019-06-25] MEDS: CLINDAMYCIN 600 MG/50 mL 600 MG/50 ML BAG IV SCH ×2 (01:47→10:45)
[2019-06-25] MEDS: oxyCODONE /ACETAMINOPHEN 5-325MG TAB PO PRN (05:03)
[2019-06-25] MEDS: DOXYCYCLINE 100 MG CAPSULE PO SCH ×2 (05:03→10:45)
[2019-06-25] MEDS: ONDANSETRON 8 MG ODT TAB PO PRN (12:43)
--- NOTE | 2019-06-25 13:14 | Progress Note ---
Assessment and Plan Plan for discharge on today. Follow up as an outpatient Subjective Principal diagnosis: PID, suspected TOA Interval history: Patient still having some pain but she has now been afebrile for over 24 hours. Patient ok to discharge on oral antibiotics. Objective - Constitutional Vitals: Vital Signs - 12hr 06/25/19 06/25/19 06/25/19 05:03 05:20 08:09 Temperature 99.8 F H 98.7 F Pulse Rate 100 H 90 Respiratory 20 18 18 Rate Blood Pressure 97/61 119/74 O2 Sat by Pulse 98 97 Oximetry - Labs CBC & Chem 7: 06/24/19 10:29 06/19/19 16:08 Medications & Allergies - Medications Allergies/Adverse Reactions: Allergies metronidazole [From Flagyl] Allergy (Verified 06/19/19 15:56) Hives tree nut Allergy (Verified 06/19/19 15:56) Angioedema Home Medications: Home Medications Medication Instructions Recorded Confirmed Last Taken Type levoFLOXacin [Levaquin TAB] 500 mg PO QDAY 10 Days #10 tablet 06/21/19 Unknown Rx oxyCODONE /ACETAMINOPHEN [Percocet 2 tab PO Q6HR PRN #40 tablet 06/21/19 Unknown Rx 5/325] DOXYCYCLINE Hyclate [Vibramycin 100 mg PO BID #20 capsule 06/25/19 Unknown Rx CAP] Active Medications: Generic Name Dose Route Start Last Admin Trade Name Freq PRN Reason Stop Dose Admin Acetaminophen 650 mg 06/20/19 02:42 06/23/19 22:10 Tylenol PO 650 mg Q6H PRN Administration Pain, Mild (1-3) Doxycycline Hyclate 100 mg 06/24/19 13:00 06/25/19 10:45 Vibramycin PO 100 mg BID ALEX Administration Lactated Ringer's 1,000 mls @ 125 mls/hr 06/20/19 03:00 06/23/19 19:53 Lactated Ringers IV 125 mls/hr DIRECT ALEX Administration Clindamycin HCl 600 mg in 50 mls @ 100 mls/hr 06/24/19 14:00 06/25/19 10:45 Cleocin 600 Mg/50 Ml IV 100 mls/hr Q8HR ALEX Administration Protocol Ceftriaxone Sodium 2 gm in 100 mls @ 200 mls/hr 06/24/19 13:00 06/24/19 15:58 Rocephin/Ns 2 Gm/100 Ml IV 200 mls/hr Q24HR ALEX Administration Protocol Ketorolac Tromethamine 30 mg 06/24/19 08:35 Toradol IV 06/29/19 08:34 Q6H PRN Pain, Moderate (4-6) Magnesium Hydroxide 30 ml 06/24/19 08:36 06/24/19 10:01 Milk Of Magnesia PO 30 ml Q4H PRN Administration Constipation Ondansetron HCl 8 mg 06/20/19 23:08 06/25/19 12:43 Zofran Odt PO 8 mg Q8H PRN Administration Nausea And Vomiting Oxycodone/Acetaminophen 2 tab 06/23/19 09:17 06/25/19 05:03 Percocet 5/325 PO 2 tab Q6H PRN Administration Pain, Moderate (4-6) Zolpidem Tartrate 5 mg 06/20/19 02:41 06/23/19 22:10 Ambien PO 5 mg QHS PRN Administration Sleep
--- NOTE | 2019-06-25 13:16 | Discharge Summary ---
Providers - Providers Date of Admission: 06/20/19 00:47 Date of discharge: 06/25/19 Attending physician: CHRISTIANO COLE 06/23/19 09:28 Consult to Case Management [CONS] Urgent Services Needed at Discharge: Other Notified:: Emergency medicaid 06/23/19 09:34 Consult to Interventional Radiology [CONS] Urgent Consulting Provider: BRENNA POWELL Reason For Exam: TOA with elevated temperatures Notified:: Rn Acute Dialysis 06/24/19 08:36 Consult to Physician [CONS] Routine Comment: Consulting Provider: ELIN WARE Physician Instructions: Reason For Exam: fever, suspected TOA s/p drainage 06/23/19 Primary care physician: CUSTOMER SERVICE ENGINEER Hospitalization Reason for admission: other (PID) Procedure: other (CT guided drainage of ovarian cyst) Incision: normal complications: none Discharge diagnosis: other Hospital course: see procedure note Condition at discharge: Good Disposition: DC-01 TO HOME OR SELFCARE Plan - Discharge Medications Prescriptions: levoFLOXacin [Levaquin TAB] 500 mg PO QDAY 10 Days #10 tablet oxyCODONE /ACETAMINOPHEN [Percocet 5/325] 2 tab PO Q6HR PRN #40 tablet PRN Reason: Pain DOXYCYCLINE Hyclate [Vibramycin CAP] 100 mg PO BID #20 capsule - Provider Discharge Summary Activity: routine, no sex for 6 weeks, no heavy lifting 4 weeks, no strenuous exercise Diet: routine Instructions: routine Additional instructions: [] Smoking cessation referral if applicable(refer to patient education folder for contact #) [] Refer to [facility] Booklet Call your doctor immediately for: * Fever > 100.5 * Heavy vaginal bleeding ( >1 pad per hour) * Severe persistent headache * Shortness of breath * Reddened, hot, painful area to leg or breast * Drainage or odor from incision. * Keep incision clean and dry at all times and follow doctor's instructions regarding bathing/showering - Follow up plan Follow up: PRIMARY CARE, [Primary Care Provider] - 10 Days
--- NOTE | 2019-06-25 14:32 | Progress Note ---
Assessment and Plan Cultures: 06/19/2019 Blood culture: No growth 06/19/2019 Urine culture: skin joe 06/20/2019 GC NAAT: negative 06/23/2019 HIV: non reactive 06/23/2019 IR drainage culture: no growth A/P: 29/F with: 1) Sepsis: resolved fever and leukocytosis; secondary to TOA: s/p drainage by IR on 06/23/2019. CT shows large multicystic mass [id number] 2) Flagyl allergy, patient states she developed rectal bleeding and had to go to the ER, does not want to take it again. 3) Nausea: ? clinda Recs: noted discharge summary to be discharged on levaquin and doxycycline per primary team. feeling nauseated, if she stays stop clindamycin and start unasyn IV and continue doxycycline po Will follow Geneva Mckeon MD Infectious Diseases Stock Sorter [facility] ([facility]) M [phone] O [phone] Subjective Date of service: 06/25/19 Principal diagnosis: PID, suspected TOA Interval history: Feels ok but c/o severe nausea Objective - Exam Narrative Exam: Constitutional: awake, alert, no distress Head, Ears, Nose: Normocephalic, atraumatic. External ears, nose normal Eyes: Conjunctivae/corneas clear. No icterus. No ptosis. Neck: supple, no meningeal signs Oral: no thrush Cardiovascular: S1, S2 normal. Respiratory: Good air entry, clear to auscultation bilaterally but reduced in the bases GI: Soft, tenderness in lower abdomen R>L; bowel sounds normal. No peritoneal signs. Posteriorly with drain + Musculoskeletal: No pedal edema, no cyanosis. Skin: No rash or abscess Hem/Lymphatic: No palpable cervical or supraclavicular nodes. No lymphangitis Psych: mood OK. Affect normal. Neurological: awake, alert, oriented. No focal deficits. - Constitutional Vitals: Vital Signs Temp Pulse Resp BP Pulse Ox 98.7 F 90 18 119/74 97 06/25/19 08:09 06/25/19 08:09 06/25/19 08:09 06/25/19 08:09 06/25/19 08:09 Temperature -Last 24 Hours Temperature 98.7 F Temperature 99.8 F Temperature 98.9 F Temperature 99.7 F Temperature 99.7 F - Labs CBC & Chem 7: 06/24/19 10:29 06/19/19 16:08
[2019-06-25 15:21] VITALS: BP 120/75
--- NOTE | 2019-06-25 16:25 | Cat Scan Report ---
EXAM: CT guided transgluteal 8 Slovenian pelvic drain placement CLINICAL INDICATION: Cystic fluid collection in the pelvis in a patient with leukocytosis, and near continuous fevers concerning for tubo-ovarian abscess DATE: 06/23/19 RESEARCH AND DEVELOPMENT ENGINEER: BRENNA KATE MD MEDICATIONS: Conscious sedation using Versed and fentanyl was performed under guidance of radiologic nursing. Continuous cardiopulmonary monitoring was utilized. PROCEDURE: Following an explanation of the risks, benefits and alternatives; written informed consent was obtained. The patient was brought to the CT suite and placed in the prone position on the CT table. Bus Transportation Manager CT was performed of the pelvis. After determining the appropriate site, the skin was infiltrated with lidocaine and a finder needle was placed. Intermittent CT was performed until the desired position was identified. The 18 gauge trocar needle was inserted into the pelvic fluid collection . Aspiration was performed and sent to the lab for analysis. J wire was then advanced through the needle and into the collection. The needle was exchanged for multiple dilators that were used to serially dilate over the wire. A 8 Fr APD drain was advanced over the wire and metal stiffener. The metal stiffener and wire were removed. Final CT scanning was performed. The pigtail was secured and aspirated until no more material could be aspirated. Sterile bandage was applied. Multiple silk sutures were used to secure the drain. The patient tolerated the procedure well. There were no immediate postprocedural complications. FINDINGS: 1. Initial CT demonstrates multifocal pelvic fluid collection. There is a satisfactory window for CT drainage. 2. Intermittent CT demonstrates the 18 gauge needle was placed in the multifocal pelvic fluid collection. 3. Wire is coiled in the multifocal pelvic fluid collection fluid collection. 4. Final CT documents placement of a 8 Fr drain in the pelvic fluid collection. 5. A total of 550 mL of brown cloudy material was aspirated through the drain and initial needle. IMPRESSION: Successful CT guided transgluteal pelvic drain placement in a fluid collection/abscess.
== END 2019-06-25 14:30 | disposition home or self-care (01) | DRG 872 ==
LOC: ED 15:05 → LD 06-20 00:47 → OB 06-20 01:15
PROVIDERS: ADMIT Obstetrics & Gynecology; ATTEND Obstetrics & Gynecology
PROC: 0W9J3ZX Drainage of Pelvic Cavity, Percutaneous Approach, Diagnostic (ICD-10-PCS; principal; 2019-06-23)
DX: A41.9 Sepsis, unspecified organism (principal); N83.209 Unspecified ovarian cyst, unspecified side; N73.9 Female pelvic inflammatory disease, unspecified; N70.93 Salpingitis and oophoritis, unspecified; R19.00 Intra-abdominal and pelvic swelling, mass and lump, unspecified site; Z79.899 Other long term (current) drug therapy
CPT/HCPCS: 10160; 36415; 71045; 71046; 74177; 76830; 77012; 80053; 81001; 82140; 82805; 84703; 85007; 85025; 85610; 87040; 87076; 87086; 87116; 87186; 87210; 87591; 87806; 88112; 93005; 93010; 96365; 96375; 96376; G0378; C1769; J0696; J1170; J1580; J1956; J2250; J2405; J3010; J7030; J7050; J7120; Q0162; Q9967